=== PATIENT | female | born 1995 | race Caucasian/White ===

== ENCOUNTER 2016-06-18 17:30 | Emergency (ER) | payer OTHER ==
[2016-06-18 17:38] VITALS: BP 153/62; PULSE 60; TEMP 98.3; BMI 23.2
[2016-06-18 20:35] LABS: BASOPHIL 0.6 % (0-2.0); EOSINOPHIL 2.7 % (0-4.5); MCHC 33.7 g/dl (32.0-36.0); MEAN CELL VOLUME 88.9 fl (80-96); MEAN PLT VOLUME 9.4 fl (7.5-11.1); NEUTROPHILS 49.6 % (42.8-82.8); PLATELET COUNT 224 K/MM3 (134-434); RDW 12.6 % (11.6-15.6); WHITE BLOOD COUNT 8.1 K/mm3 (4.0-10.0)
[2016-06-18 20:36] LABS: URINE APPEARANCE SLCLOUDY; URINE BILIRUBIN NEGATIVE (NEGATIVE); URINE BLOOD 1+ (NEGATIVE); URINE COLOR YELLOW; URINE GLUCOSE (UA) NEGATIVE (NEGATIVE); URINE KETONE NEGATIVE (NEGATIVE); URINE LEUK ESTERASE NEGATIVE (NEGATIVE); URINE NITRITE POSITIVE (NEGATIVE); URINE PROTEIN NEGATIVE (NEGATIVE); URINE UROBILINOGEN NEGATIVE E.U./dl (0.2-1.0)
[2016-06-18 20:39] LABS: URINE BACTERIA MANY /hpf (NONE SEEN); URINE MUCUS FEW; URINE WBC 2 /hpf (3-5)
--- NOTE | 2016-06-18 21:36 | PDOC ---
History of Present Illness - General Chief Complaint: Rectal Bleed Stated Complaint: BLOOD IN STOOL Time Seen by Provider: 06/18/16 19:14 - History of Present Illness Initial Comments: 06/18/16 21:34 CHIEF COMPLAINT: rectal bleeding HISTORY OF PRESENT ILLNESS: 21 yo F with no PMH presents to ED with rectal bleeding since yesterday. She denies any nausea, vomiting, diarrhea, or abdominal pain, but reports that the "toilet had blood in it." She denies any rectal pain or pain with bowel movements. She denies any history of hemorrhoids or anal fissure. She does report that she has had episodes of constipation previously and was given "something like an oil to drink and make me go" and that sometimes she also has diarrhea in between her bouts of constipation. No recent travel or sick contacts. PAST MEDICAL HISTORY: Denies past medical history FAMILY HISTORY: Denies SOCIAL HISTORY: Denies tobacco, alcohol, illicit drug use. SURGICAL HISTORY: Denies ALLERGIES: No known drug allergies REVIEW OF SYSTEMS General/Constitutional: Denies fever or chills. Denies weakness, weight change. HEENT: Denies change in vision. Denies ear pain or discharge. Denies sore throat. Cardiovascular: Denies chest pain or shortness of breath. Respiratory: Denies cough, wheezing, or hemoptysis. Gastrointestinal: Rectal bleeding since yesterday. Denies nausea, vomiting, diarrhea or constipation. Denies rectal bleeding. Genitourinary: Denies dysuria, frequency, or change in urination. Musculoskeletal: Denies joint or muscle swelling or pain. Denies neck or back pain. Skin and breasts: Denies rash or easy bruising. PHYSICAL EXAM General Appearance: Well-appearing, appropriately dressed. No apparent distress , no intoxication. HEENT: EOMI, PERRLA. No conjunctival pallor. No photophobia, scleral icterus. Neck: Supple. Trachea midline. No tenderness, rigidity, carotid bruit, stridor , lymphadenopathy, or thyromegaly. Respiratory/Chest: Lungs CTAB. Cardiovascular: RRR. S1, S2. Gastrointestinal/Abdominal: Normal bowel sounds. Abdomen soft, non-distended. No tenderness or rebound tenderness. No organomegaly, pulsatile mass, guarding , hernia, hepatomegaly, splenomegaly. Rectal exam: Pain on digital exam. Brown stool with slight pink-tinge. External exam unremarkable. Musculoskeletal/Extremities: Normal inspection. FROM of all extremities, normal capillary refill. Pelvis Stable. No CVA tenderness. No tenderness to extremities, pedal edema, swelling, erythema or deformity. Integumentary: Appropriate color, dry, warm. No cyanosis, erythema, jaundice or rash Neurologic: pot filler II-XII intact. Fully oriented, alert. Appropriate mood/affect. Motor strength 5/5. No appreciable EOM palsy, facial droop or sensory deficit. 06/18/16 22:02 Past History - Past Medical History Allergies/Adverse Reactions: Allergies Allergy/AdvReac Type Severity Reaction Status Date / Time No Known Allergies Allergy Verified 06/18/16 17:36 Home Medications: Ambulatory Orders NK [No Known Home Medication] 08/01/15 Other medical history: DENIES. - Psycho/Social/Smoking Cessation Hx Anxiety: No Suicidal Ideation: No Smoking History: Never smoked Hx Alcohol Use: No Drug/Substance Use Hx: No *Physical Exam - Vital Signs Last Vital Signs Temp Pulse Resp BP Pulse Ox 98.3 F 60 18 153/62 100 06/18/16 17:35 06/18/16 17:35 06/18/16 17:35 06/18/16 17:35 06/18/16 17:35 ED Treatment Course - LABORATORY CBC & Chemistry Diagram: 06/18/16 20:00 - ADDITIONAL ORDERS Additional order review: Laboratory Results 06/18/16 06/18/16 20:15 20:00 Urine Color Yellow Urine Appearance Slcloudy Urine pH 5.0 Urine Protein Negative Urine Glucose (UA) Negative Urine Ketones Negative Urine Blood 1+ H Urine Nitrite Positive Urine Bilirubin Negative Urine Urobilinogen Negative Ur Leukocyte Esterase Negative Urine RBC None Urine WBC 2 Ur Epithelial Cells Rare Urine Bacteria Many Urine Mucus Few Urine HCG, Qual Negative Stool Occult Blood Positive 06/18/16 20:00 RBC 4.36 MCV 88.9 MCHC 33.7 RDW 12.6 MPV 9.4 Neutrophils % 49.6 Lymphocytes % 39.0 Monocytes % 8.1 Eosinophils % 2.7 Basophils % 0.6 Medical Decision Making - Medical Decision Making 06/18/16 22:03 21 yo F with no PMH presents to ED with rectal bleeding since yesterday. -CBC, T&S -Stool for occult blood Guaiac positive. Other labs unremarkable, H&H stable. Patient exam is unremarkable. Will discharge to home with close f/u with GI. Advised patient to follow up with GI this week for possible colonoscopy for evaluation of IBS/Crohn's. Advised patient of signs and symptoms for return to ER; patient verbalized understanding and agrees to plan. *DC/Admit/Observation/Transfer Diagnosis at time of Disposition: Rectal bleeding - Discharge Dispostion Admit: No - Referrals Referrals: Dawn Boogie MD [Staff Physician] - - Patient Instructions Printed Discharge Instructions: DI for Rectal Bleeding Additional Instructions: Please follow up with gastroenterology for further evaluation of your rectal bleeding and possible colonoscopy. If you experience develop headache, dizziness, nausea, vomiting, diarrhea, severe abdominal pain, or any new or worsening symptoms, please return to the ER.
--- NOTE | 2016-06-22 18:27 | PDOC ---
Patient Follow-up (Call Back) - Post ED Follow - Up Disposition at time of original discharge: HOME Reason for Call Back: Abnwl. Microbiology (urine culture + for E coli, sensitive for macrodantin, pt. called told that she has a UTI, and that rx for macrobid 100 mg bid for 7 days, follow up with PCP after treatment is completed for repeat UTI.)
== END 2016-06-18 21:51 | disposition home or self-care (01) ==
LOC: JER 17:30
DX: K62.5 Hemorrhage of anus and rectum (principal)
CPT/HCPCS: 36415; 81003; 81015; 82272; 84703; 85025; 86850; 86900; 86901; 87086; 87186; 99282-25